=== PATIENT | female | born 1985 | race Caucasian/White ===

== ENCOUNTER 2022-04-21 11:53 | Emergency (ER) | payer OTHER ==
[~2022-04-21] VITALS: Ht 154.9 cm; Wt 72.6 kg
[2022-04-21] MEDS ORDERED: ONDANSETRON 4 MG/2 ML VIAL ONE (12:22)
[2022-04-21] MEDS ORDERED: ACETAMINOPHEN ES 500 MG TABLET ONE (12:23)
[2022-04-21] MEDS ORDERED: KETOROLAC TROMETHAMINE 30 MG INJ ONE (12:23)
[2022-04-21] MEDS ORDERED: ACETAMINOPHEN ES 500 MG TABLET PO ONE (12:30)
[2022-04-21] MEDS ORDERED: IV NORMAL SALINE 1000 ML BAG IV ONE (12:30)
[2022-04-21] MEDS ORDERED: KETOROLAC TROMETHAMINE 15 MG INJ IVP ONE (12:30)
[2022-04-21] MEDS ORDERED: ONDANSETRON 4 MG/2 ML VIAL IV ONE (12:30)
[2022-04-21 12:42] LABS: HEMATOCRIT 38.3 % (31.2-41.9); MEAN CORPUSCULAR HEMOGLOBIN 31.1 uug (24.7-32.8); MEAN CORPUSCULAR VOLUME 89.3 fL (75.5-95.3); PLATELET COUNT (AUTO) 296 K/uL (179-408)
[2022-04-21 12:59] LABS: ALANINE AMINOTRANSFERASE 15 U/L (14-59); ALKALINE PHOSPHATASE 65 U/L (50-136); ASPARTATE AMINOTRANSFERASE 11 U/L (15-37); BILIRUBIN,DIRECT 0.2 mg/dL (0.0-0.2); BILIRUBIN,TOTAL 0.9 mg/dL (0.2-1.0); CARBON DIOXIDE 28 mmol/L (21-32); CHLORIDE 102 mmol/L (98-107); CREATININE 0.7 mg/dL (0.6-1.3); GLUCOSE 102 mg/dL (74-106); LIPASE 133 U/L (73-393); POTASSIUM 3.7 mmol/L (3.5-5.1); TOTAL PROTEIN, SERUM 7.6 g/dL (6.4-8.2); UREA NITROGEN, BLOOD 8 mg/dL (7-18)
[2022-04-21 13:04] LABS: *BILIRUBIN,URIN NEGATIVE (NEGATIVE); *BLOOD, URINE 2+ (NEGATIVE); *CLARITY,URINE CLEAR (CLEAR); *COLOR,URINE YELLOW (YELLOW); *KETONES,URINE NEGATIVE (NEGATIVE); *UROBILINOGEN,URINE 0.2 E.U./dl (NORMAL); LEUKOCYTE ESTERASE ,URINE NEGATIVE (NEGATIVE); NITRITE, URINE NEGATIVE (NEGATIVE); PH,URINE 6.5 (5.0-8.0); UGLUCOSE NEGATIVE (NEGATIVE)
[2022-04-21] MEDS ORDERED: DICY10CA13 PO (13:44)
[2022-04-21] MEDS ORDERED: ONDA4TAB11 PO (13:44)
--- NOTE | 2022-04-21 13:51 | NUR ---
Patient discharged to home in stable condition. Written and verbal after care instructions given. Patient verbalizes understanding of instructions. Stressed follow up or return to ER for worsening s/s.
[2022-04-21 15:09] LABS: BACTERIA,URINE FEW /HPF (NONE SEEN); SQUAMOUS EPITHELIAL CELL,UR MODERATE /HPF (NONE SEEN); WBC,URINE 0-3 /HPF (0-3)
== END 2022-04-21 13:51 | disposition home or self-care (01) ==
LOC: ER 11:53
DX: R10.10 Upper abdominal pain, unspecified (principal); R19.7 Diarrhea, unspecified; D72.829 Elevated white blood cell count, unspecified; Z86.718 Personal history of other venous thrombosis and embolism; Z79.01 Long term (current) use of anticoagulants
CPT/HCPCS: 99284; 96374; 76700; 96361; 96375; 80076; 80048; 81001; 83690; 85025; 84702; 36415; J1885; J2405; J7040; A4663; A9150

== ENCOUNTER 2022-07-12 10:42 | Emergency (ER) | payer OTHER ==
[~2022-07-12] VITALS: Ht 154.9 cm; Wt 72.6 kg
[~2022-07-12 10:42] MED LIST: DICY10CA13 PO; ONDA4TAB11 PO
--- NOTE | 2022-07-12 10:52 | NUR ---
37 year4s old female walk in to er c/o foreign object in vaginal area.
--- NOTE | 2022-07-12 11:03 | NUR ---
assist Md with pelvic exam sponge was removed tolerated well, denies pain no itch, redness, afebrile.
[2022-07-12 11:11] VITALS: BP 122/70
--- NOTE | 2022-07-12 11:12 | NUR ---
patient condition stable left er via self ambulatory with steady gait no pain.
== END 2022-07-12 11:12 | disposition home or self-care (01) ==
LOC: ER 10:42
DX: T19.2XXA Foreign body in vulva and vagina, initial encounter (principal); X58.XXXA Exposure to other specified factors, initial encounter; Y92.89 Other specified places as the place of occurrence of the external cause; Z86.718 Personal history of other venous thrombosis and embolism
CPT/HCPCS: A4663